=== PATIENT | male | born 1975 | race African-American/Black ===

== ENCOUNTER 2018-12-20 09:30 | Inpatient (IN) | payer MEDICAID ==
[~2018-12-20] VITALS: Ht 180.3 cm; Wt 110.7 kg
[2018-12-20] MEDS ORDERED: LABETALOL 5MG/ML SYR 20 MG/4 ML SYRINGE IV ONE (10:30)
[2018-12-20 12:02] LABS: BASOPHILS % 0.7 % (0.0-2.0); HEMATOCRIT. 48.5 % (42.0-52.0); HEMOGLOBIN. 16.2 g/dL (14.0-18.0); MEAN CORPUSCULAR HEMOGLOBIN 27.2 pg (28.0-32.0); MEAN CORPUSCULAR VOLUME 81.5 fL (80.0-94.0); MEAN PLATELET VOLUME 9.1 fl (7.4-10.4); MONOCYTES % 8.8 % (2.0-8.0); NEUTROPHILS % 60.5 % (40.0-76.0); PLATELET 204 x1000/uL (130-400); RED BLOOD CELL COUNT 5.95 mill/uL (4.7-6.1); RED CELL DISTRIBUTION WIDTH 15.4 % (11.6-14.6)
[2018-12-20 12:09] LABS: CHLORIDE 102 mEq/L (98-107)
[2018-12-20] MEDS ORDERED: IOHEXOL-350 100 ML BOTTLE ONE (13:56)
[2018-12-20] MEDS ORDERED: ASPIRIN 81MG TABLET PO ONE (14:00)
[2018-12-20] MEDS ORDERED: MAGNESIUM/ALUMINUM HYDROXIDE/SIMETHICONE 30ML UDC PO PRN (15:00)
[2018-12-20] MEDS ORDERED: CLONIDINE 0.1MG TABLET PO PRN (15:00)
[2018-12-20] MEDS ORDERED: HYDROCODONE/ACETAMINOPHEN 5/325MG TABLET PO PRN (15:00)
[2018-12-20] MEDS ORDERED: ONDANSETRON HCL 4MG/2ML INJ IV PRN (15:00)
[2018-12-20] MEDS ORDERED: DOCUSATE SODIUM 100MG CAPSULE PO PRN (15:00)
[2018-12-20] MEDS ORDERED: GUAIFENESIN 200MG/10ML SUGAR FREE UDC PO PRN (15:00)
[2018-12-20] MEDS ORDERED: MORPHINE SULFATE 2 MG/ML CPJ (NOT FOR IM USE) IV PRN (15:00)
[2018-12-20] MEDS ORDERED: POTASSIUM CHLORIDE INJ 40 MEQ in DEXT 5% WATER 500 ML IV ONE (15:15)
[2018-12-20] MEDS ORDERED: POTASSIUM CHLORIDE 20MEQ TABLET SR PO ONE (15:15)
[2018-12-20] MEDS ORDERED: ENOXAPARIN 30MG/0.3ML SYR SUBCUT SCH (18:30)
[2018-12-20 18:41] VITALS: BP 135/95
[2018-12-20 18:55] VITALS: BP 135/95
[2018-12-20 20:00] VITALS: BP 123/89
[2018-12-20] MEDS: ENOXAPARIN 30MG/0.3ML SYR SUBCUT SCH (21:07)
[2018-12-21 00:10] LABS: CREATINE KINASE 435 IU/L (39-308)
[2018-12-21 00:11] LABS: CREATINE KINASE MB FRACTION 3.7 ng/mL (0.5-3.6)
[2018-12-21 04:00] VITALS: BP 133/92
[2018-12-21 06:53] LABS: BASOPHILS % 0.5 % (0.0-2.0); EOSINOPHILS % 1.5 % (0.0-5.0); HEMATOCRIT. 47.8 % (42.0-52.0); HEMOGLOBIN. 15.9 g/dL (14.0-18.0); LYMPHOCYTES % 39.8 % (20.0-50.0); MEAN CORPUSCULAR HEMOGLOBIN 27.3 pg (28.0-32.0); MEAN PLATELET VOLUME 8.8 fl (7.4-10.4); MONOCYTES % 9.1 % (2.0-8.0); NEUTROPHILS % 49.1 % (40.0-76.0); PLATELET 182 x1000/uL (130-400); RED BLOOD CELL COUNT 5.84 mill/uL (4.7-6.1); RED CELL DISTRIBUTION WIDTH 15.2 % (11.6-14.6)
[2018-12-21 07:46] VITALS: BP 142/106
[2018-12-21] MEDS: ENOXAPARIN 30MG/0.3ML SYR SUBCUT SCH ×2 (07:52→12:38)
[2018-12-21] MEDS ORDERED: AMLODIPINE 10MG TABLET PO SCH (09:00)
[2018-12-21] MEDS ORDERED: ASPIRIN 81MG EC TABLET PO SCH (09:00)
[2018-12-21 09:43] LABS: CHLORIDE 104 mEq/L (98-107)
[2018-12-21 09:56] LABS: LDL CHOLESTEROL 115 mg/dL (5-100)
[2018-12-21 09:57] LABS: CREATINE KINASE 309 IU/L (39-308); HDL CHOLESTEROL 41 mg/dL (40-59)
[2018-12-21 10:00] LABS: CREATINE KINASE MB FRACTION 2.6 ng/mL (0.5-3.6)
[2018-12-21 12:00] VITALS: BP 140/107
[2018-12-21] MEDS ORDERED: POTASSIUM CHLORIDE 20MEQ TABLET SR PO NR ×2 (12:00→12:30)
[2018-12-21] MEDS ORDERED: HYDRALAZINE HCL 50MG TABLET PO SCH (14:00)
[2018-12-21] MEDS ORDERED: FENOFIBRATE NANOCRYSTALLIZED 145MG TABLET PO SCH (14:00)
[2018-12-21 14:59] VITALS: BP 136/94
== END 2018-12-21 15:50 | disposition home or self-care (01) | DRG 203 ==
LOC: ER 09:30 → 5WST 13:35 → EDBEDREQ 13:53 → SUPCPDRO 14:45 → ENRESERV 15:33
PROVIDERS: ADMIT Hospitalist; ATTEND Hospitalist
DX: R07.89 Other chest pain (principal); E78.1 Pure hyperglyceridemia; E78.5 Hyperlipidemia, unspecified; E87.6 Hypokalemia; F17.200 Nicotine dependence, unspecified, uncomplicated; I10 Essential (primary) hypertension; Z79.899 Other long term (current) drug therapy
CPT/HCPCS: 36415; 71045; 71275; 80061; 82550; 82553; 83735; 83880; 84484; 93005; 93306; 93970; 96374; 99285; J1650; J3480; J3490; J7060; Q9967